=== PATIENT | female | born 1995 | race Caucasian/White ===

== ENCOUNTER 2016-11-10 17:51 | Emergency (ER) | payer OTHER | END 2016-11-10 19:29 | disposition home or self-care (01) | LOC: FER 17:51 | DX: J02.9 Acute pharyngitis, unspecified (principal); K08.89 Other specified disorders of teeth and supporting structures; F17.210 Nicotine dependence, cigarettes, uncomplicated | CPT/HCPCS: 87450; 99283 ==

== ENCOUNTER 2016-12-26 12:40 | Emergency (ER) | payer OTHER | END 2016-12-26 13:46 | disposition home or self-care (01) | LOC: FER 12:40 | DX: M77.9 Enthesopathy, unspecified (principal) | CPT/HCPCS: J1100; J1885 ==